=== PATIENT | male | born 2005 | race Caucasian/White ===

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

== ENCOUNTER 2023-09-22 15:06 | Emergency (ER) | payer SELFPAY ==
[~2023-09-22] VITALS: Ht 175.3 cm; Wt 100.0 kg
[~2023-09-22 15:06] MED LIST changes: +MAGIC MOUTH PO
[2023-09-22 15:09] VITALS: TEMP 98.1
[2023-09-22] MEDS ORDERED: ZOFRAN ODT4 MG PO (16:07)
[2023-09-22 16:24] VITALS: BP 116/82; PULSE 70
== END 2023-09-22 16:24 | disposition home or self-care (01) ==
LOC: COL.ER 15:06
DX: B34.9 Viral infection, unspecified (principal); R11.2 Nausea with vomiting, unspecified

== ENCOUNTER 2023-12-01 13:42 | Emergency (ER) | payer SELFPAY ==
[~2023-12-01] VITALS: Ht 175.3 cm; Wt 90.9 kg
[~2023-12-01 13:42] MED LIST changes: +ZOFRAN ODT4 MG PO
[2023-12-01 13:48] VITALS: TEMP 98
[2023-12-01] MEDS ORDERED: BACTRIM DS 8001 TAB PO (16:16)
[2023-12-01 16:26] VITALS: BP 136/80; PULSE 73
== END 2023-12-01 16:26 | disposition home or self-care (01) ==
LOC: COL.ER 13:42
DX: L02.31 Cutaneous abscess of buttock (principal); F17.200 Nicotine dependence, unspecified, uncomplicated